=== PATIENT | male | born 1955 | race Caucasian/White ===

== ENCOUNTER → 2016-10-19 | Outpatient (CLI) | payer MEDICARE, OTHER ==
[2015-04-21 13:22] VITALS: BP 120/74
[~2016-10-19] MED LIST: ALLO300T PO; BARIATRIC ADVANTAGE PO; BUPR150T11 PO; CALC-102 PO; CHOL10003 PO; CLIN300C3 PO; CYAN3000 SL; DAPA5TAB PO; DIGO250T PO; DILT60TA PO; DOCU100C5 PO; DULO60CA6 PO; ENOX40DI SQ; ESCI10TA PO; EZET10TA3 PO; FLUT1DIS5 IH; GABA-585 PO; HYDR-2762 PO; LINA1TAB PO; LISI-338 PO; LORA0.5T PO; METO100T11 PO; MONT10TA6 PO; MULT-35 PO; OMEP20TA PO; PROAIR HFA8.5 GM IH; SENN8.6T67 PO; TAMS0.4C2 PO; TEMA30CA PO; VENL75TA PO; WARF5TAB7 PO
== END | disposition home or self-care (01) ==
LOC: PMGWOUND 09:01
PROVIDERS: ATTEND Preventive Medicine Undersea and Hyperbaric Medicine
DX: L03.116 Cellulitis of left lower limb (principal); L03.115 Cellulitis of right lower limb; E11.9 Type 2 diabetes mellitus without complications; I48.92 Unspecified atrial flutter; M19.90 Unspecified osteoarthritis, unspecified site; J45.909 Unspecified asthma, uncomplicated; Z87.891 Personal history of nicotine dependence
CPT/HCPCS: 29581

== ENCOUNTER → 2016-10-22 | Outpatient (CLI) | payer MEDICARE, OTHER ==
[2015-04-21 13:22] VITALS: BP 120/74
== END | disposition home or self-care (01) ==
LOC: PMGWOUND 14:02
PROVIDERS: ATTEND Emergency Medicine Undersea and Hyperbaric Medicine
DX: L03.116 Cellulitis of left lower limb (principal); L03.115 Cellulitis of right lower limb; E11.9 Type 2 diabetes mellitus without complications; I48.92 Unspecified atrial flutter; M19.90 Unspecified osteoarthritis, unspecified site; J45.909 Unspecified asthma, uncomplicated; Z87.891 Personal history of nicotine dependence
CPT/HCPCS: 29581

== ENCOUNTER → 2016-10-25 | Outpatient (CLI) | payer MEDICARE, OTHER ==
[2015-04-21 13:22] VITALS: BP 120/74
== END | disposition home or self-care (01) ==
LOC: PMGWOUND 12:25
PROVIDERS: ATTEND Emergency Medicine Undersea and Hyperbaric Medicine
DX: I87.333 Chronic venous hypertension (idiopathic) with ulcer and inflammation of bilateral lower extremity (principal); L97.211 Non-pressure chronic ulcer of right calf limited to breakdown of skin; L97.221 Non-pressure chronic ulcer of left calf limited to breakdown of skin; E11.622 Type 2 diabetes mellitus with other skin ulcer; I48.92 Unspecified atrial flutter; M19.90 Unspecified osteoarthritis, unspecified site; J45.909 Unspecified asthma, uncomplicated; Z87.891 Personal history of nicotine dependence
CPT/HCPCS: 29581

== ENCOUNTER → 2016-10-29 | Outpatient (CLI) | payer MEDICARE, OTHER ==
[2015-04-21 13:22] VITALS: BP 120/74
== END | disposition home or self-care (01) ==
LOC: PMGWOUND 12:20
PROVIDERS: ATTEND Emergency Medicine Undersea and Hyperbaric Medicine
DX: I87.311 Chronic venous hypertension (idiopathic) with ulcer of right lower extremity (principal); I87.322 Chronic venous hypertension (idiopathic) with inflammation of left lower extremity; E11.622 Type 2 diabetes mellitus with other skin ulcer; L97.211 Non-pressure chronic ulcer of right calf limited to breakdown of skin; L97.221 Non-pressure chronic ulcer of left calf limited to breakdown of skin; L03.116 Cellulitis of left lower limb; I48.91 Unspecified atrial fibrillation; M19.90 Unspecified osteoarthritis, unspecified site; J45.909 Unspecified asthma, uncomplicated; Z87.891 Personal history of nicotine dependence
CPT/HCPCS: 29581

== ENCOUNTER → 2016-11-02 | Outpatient (CLI) | payer MEDICARE, OTHER ==
[2015-04-21 13:22] VITALS: BP 120/74
== END | disposition home or self-care (01) ==
LOC: PMGWOUND 10:50
PROVIDERS: ATTEND Emergency Medicine Undersea and Hyperbaric Medicine
DX: I87.333 Chronic venous hypertension (idiopathic) with ulcer and inflammation of bilateral lower extremity (principal); E11.622 Type 2 diabetes mellitus with other skin ulcer; L97.211 Non-pressure chronic ulcer of right calf limited to breakdown of skin; L97.221 Non-pressure chronic ulcer of left calf limited to breakdown of skin; I48.92 Unspecified atrial flutter; J45.909 Unspecified asthma, uncomplicated; M19.90 Unspecified osteoarthritis, unspecified site; Z87.891 Personal history of nicotine dependence
CPT/HCPCS: 99213

== ENCOUNTER → 2016-11-05 | Outpatient (CLI) | payer MEDICARE, OTHER ==
[2015-04-21 13:22] VITALS: BP 120/74
== END | disposition home or self-care (01) ==
LOC: PMGWOUND 08:51
PROVIDERS: ATTEND Emergency Medicine Undersea and Hyperbaric Medicine
DX: I87.333 Chronic venous hypertension (idiopathic) with ulcer and inflammation of bilateral lower extremity (principal); L97.211 Non-pressure chronic ulcer of right calf limited to breakdown of skin; L97.221 Non-pressure chronic ulcer of left calf limited to breakdown of skin; L30.8 Other specified dermatitis; E11.622 Type 2 diabetes mellitus with other skin ulcer; I48.92 Unspecified atrial flutter; M19.90 Unspecified osteoarthritis, unspecified site; J45.909 Unspecified asthma, uncomplicated; Z87.891 Personal history of nicotine dependence
CPT/HCPCS: 99215

== ENCOUNTER → 2016-11-12 | Outpatient (CLI) | payer MEDICARE, OTHER ==
[2015-04-21 13:22] VITALS: BP 120/74
== END | disposition home or self-care (01) ==
LOC: PMGWOUND 11:33
PROVIDERS: ATTEND Emergency Medicine Undersea and Hyperbaric Medicine
DX: I87.311 Chronic venous hypertension (idiopathic) with ulcer of right lower extremity (principal); I87.322 Chronic venous hypertension (idiopathic) with inflammation of left lower extremity; E11.622 Type 2 diabetes mellitus with other skin ulcer; L97.211 Non-pressure chronic ulcer of right calf limited to breakdown of skin; L97.221 Non-pressure chronic ulcer of left calf limited to breakdown of skin; L30.8 Other specified dermatitis; I48.91 Unspecified atrial fibrillation; M19.90 Unspecified osteoarthritis, unspecified site; J45.909 Unspecified asthma, uncomplicated; Z87.891 Personal history of nicotine dependence
CPT/HCPCS: 99214

== ENCOUNTER → 2021-03-16 | Outpatient (CLI) | payer MEDICARE ==
[2018-08-09 15:55] VITALS: BP 102/59
[~2021-03-16] MED LIST changes: +ALBU2.5V8 IH; -DIGO250T PO; +DIGO250T3 PO; +DOCU100C28 PO; -DOCU100C5 PO; -ESCI10TA PO; +ESCITALOPRAM OX10 MG PO; +EZET10TA20 PO; -EZET10TA3 PO; -HYDR-2762 PO; +HYDR-2765 PO; +HYDR-3164 PO; -LISI-338 PO; +LISI-517 PO; +METO-247 PO; -METO100T11 PO; +MONT10TA49 PO; -MONT10TA6 PO; -MULT-35 PO; +MULT-377 PO; -OMEP20TA PO; +OMEP20TA8 PO; -PROAIR HFA8.5 GM IH; +WARF-31 PO; -WARF5TAB7 PO
--- NOTE | 2021-03-17 09:48 | CARD ---
MR#: [id number] Date of Study: 03/16/2021 Ordering Physician: JANNET MEYER, Referring Physician: JANNET MEYER, Tech: Alecia Laurakatherine, [facility] APPROVED REPORT EXAM: Two-dimensional and M-mode echocardiogram with Doppler and color Doppler. Other Information Quality : FairHR: 56bpm INDICATION Atrial Fibrillation RISK FACTORS Hypertension Hyperlipidemia Diabetes Asthma 2D DIMENSIONS Left Atrium(2D)4.0 (1.6-4.0cm)IVSd1.1 (0.7-1.1cm) Aortic Root(2D)3.5 (2.0-3.7cm)LVDd4.4 (3.9-5.9cm) LVOT Diameter2.0 (1.8-2.4cm)PWd1.2 (0.7-1.1cm) LVDs2.8 (2.5-4.0cm)FS (%) 36.0 % SV57.9 mlLVEF(%)65.8 (>50%) Aortic Valve AoV Peak Emmanuel.160.4cm/sAoV VTI30.9cm AO Peak GR.10.3mmHgLVOT Peak Emmanuel.104.9cm/s LVOT VTI 21.54cmAO Mean GR.6mmHg CAROLANN (VMAX)1.25ig8ISP (VTI)2.21cm2 Mitral Valve MV E Magqcizp441.4cm/sMV DECEL OYJU276px MV A Iugfgzxs69.6cm/sMV E Mean Gr.2mmHg MV RKI71tlD/A Ratio3.5 MVA (PHT)4.05cm2 TDI E/Lateral E'12.9E/Medial E'16.1 Pulmonary Valve PV Peak Jqlqbmrp96.8cm/sPV Peak Grad.4mmHg Tricuspid Valve TR P. Krwrzjka197pu/sTR Peak Gr.27mmHg LEFT VENTRICLE The left ventricle is normal size. There is mild concentric left ventricular hypertrophy. The left ve ntricular systolic function is normal. The Ejection Fraction is 55%. There is normal LV segmental wal l motion. RIGHT VENTRICLE The right ventricle is mildly dilated. There is normal right ventricular wall thickness. The right ve ntricular systolic function is normal. ATRIA The left atrium is mildly to moderately dilated. The right atrium is mildly dilated. The interatrial septum is intact with no evidence for an atrial septal defect or patent foramen ovale as noted on 2-D or Doppler imaging. AORTIC VALVE The aortic valve is calcified but opens well. Doppler and Color Flow revealed trace aortic regurgitat ion. There is no significant aortic valvular stenosis. Calculated aortic valve area is 2.30 cm2 with maximum pressure gradient of 11 mmHg and mean pressure gradient of 6 mmHg. MITRAL VALVE The mitral valve is normal in structure and function. There is no evidence of mitral valve prolapse. There is no mitral valve stenosis. Doppler and Color-flow revealed trace mitral regurgitation. TRICUSPID VALVE The tricuspid valve is normal in structure and function. Doppler and Color Flow revealed trace tricus pid regurgitation with an estimated PAP of 42 mmHg. There is mild-moderate pulmonary hypertension. Th ere is no tricuspid valve stenosis. PULMONIC VALVE The pulmonic valve is not well visualized. Doppler and Color Flow revealed trace pulmonic valvular re gurgitation. GREAT VESSELS The aortic root is normal in size. The IVC is dilated and collapses <50% with inspiration. PERICARDIAL EFFUSION There is no evidence of significant pericardial effusion. Critical Notification Critical Value: No <Conclusion> The left ventricular systolic function is normal. The Ejection Fraction is 55%. There is normal LV segmental wall motion. Trace mitral regurgitation. Trace tricuspid regurgitation with an estimated PAP of 42 mmHg. There is no evidence of significant pericardial effusion. Signed by : Foreign Madden, Electronically Approved : 03/17/2021 09:47:48
== END ==
LOC: ECHO 14:13
PROVIDERS: ATTEND Internal Medicine Cardiovascular Disease
DX: I35.1 Nonrheumatic aortic (valve) insufficiency (principal); I48.21 Permanent atrial fibrillation; I10 Essential (primary) hypertension
CPT/HCPCS: 93306

== ENCOUNTER → 2021-11-17 | Day surgery (SDC) | payer MEDICARE ==
[~2021-11-17] VITALS: Ht 165.1 cm; Wt 99.0 kg
[~2021-11-17] MED LIST changes: -DULO60CA6 PO; +DULO60CA7 PO; +IV RINGERS,LACTATED 1000ML 1,000 ML IV SCH; +LEVO50TA5 PO; +LIDOCAINE 2% PF 5 ML VIAL. ONE; -LISI-517 PO; +LISI5TAB15 PO; -OMEP20TA8 PO; +OMEP20TA91 PO; +PROPOFOL 10 MG/ML (20ML) VIAL. IV ONE
[2021-11-17 07:34] VITALS: BP 136/67
--- NOTE | 2021-11-17 08:47 | PDOC2 ---
CONSULT Date of Consult Date of Consult DATE: 11/17/21 TIME: 08:41 Reason for Consult Reason for Consult: Colorectal cancer screening with diarrhea History of Present Illness Reason for Visit: 56 year old Male is seen with above. He has long standing diarrhea without bleed ing. He does take metformin on a daily basis. Weight and appetite are stable. No family history of colon cancer is elicited. Prior colonoscopy over a decade ago may have revealed polyps. With the continued issues, he requests further evaluation. Past Medical History Cardiovascular: AFIB, HTN Endocrine: Diabetes Past Surgical History Past Surgical History: Hernia Repair, Other (sholder replacement, knee cartilage ) Family History Family History: No Significant, Diabetes, Hypertension Social History Quit ALCOHOL: none Drugs: None Lives: with Family Current Medications Current Medications Current Medications Ringer's Solution 1,000 ml @ 100 mls/hr Q10H IV Last administered on 11/17/21at 07:50; Start 11/17/21 at 07:45; Stop 11/18/21 at 07:44 Active Scripts Active [place] 5-325 Tablet (Acetaminophen/Hydrocodone Bitart) 1 Each Tablet 1 Tab PO PRN Q6HRS PRN Reported Levothyroxine Sodium 50 Mcg Tablet 1 Tab PO DAILY Hydrocodone-Apap 7.5-325 (Hydrocodone Bit/Acetaminophen) 1 Each Tablet 1-2 Tab PO PRN Q4HRS PRN LAST DOSE GIVEN: DATE:04-21-15 TIME:7:30 a.m. NEXT DOSE DUE: DATE:04-21-15 TIME: Anytime as directed if needed for pain as Tamsulosin Hcl 0.4 Mg Cap.er.24h 0.4 Mg PO HS LAST DOSE GIVEN: DATE:04-20-15 TIME:9:00 p.m. NEXT DOSE DUE: DATE:04-21-15 TIME:9:00 p.m. Warfarin Sodium 5 Mg Tablet 5 Mg PO DAILY TAKE 5 MG, 5MG, 2.5MG, REPEAT Bupropion Hcl Sr (Bupropion Hcl) 150 Mg Tablet.er 150 Mg PO DAILY LAST DOSE GIVEN: DATE:04-21-15 TIME:9:00 a.m. NEXT DOSE DUE: DATE:04-22-15 TIME:9:00 a.m. Allopurinol 300 Mg Tablet 1 Tab PO DAILY LAST DOSE GIVEN: DATE:04-21-15 TIME:9:00 a.m. NEXT DOSE DUE: DATE:04-22-15 TIME:9:00 a.m. Vitamin D3 (Cholecalciferol (Vitamin D3)) 1,000 Unit Tablet 1,000 Unit PO LAST DOSE GIVEN: DATE:04-22-15 TIME:9:00 a.m. NEXT DOSE DUE: DATE:04-23-15 TIME:9:00 a.m. [Bariatric Advantage] 1 PO DAILY Not taken while in hosp. May resume at home as directed Advair 500-50 Diskus (Fluticasone/Salmeterol) 1 Each Disk.w.dev 1 Inh IH BID LAST DOSE GIVEN: DATE:04-22-15 TIME:9:00 a.m. NEXT DOSE DUE: DATE:04-22-15 TIME:9:00 p.m. Farxiga (Dapagliflozin Propanediol) 5 Mg Tablet 2 Mg PO DAILY Not given for hosp supply may resume at home as directed Jentadueto 2.5 Mg-500 Mg Tab (Linagliptin/Metformin Hcl) 1 Each Tablet 1 Each PO BID LAST DOSE GIVEN: DATE:04-21-15 TIME:9:00 a.m. NEXT DOSE DUE: DATE:04-22-15 TIME:9:00 a.m. Proair Hfa Inhaler (Albuterol Sulfate) 8.5 Gm Hfa.aer.ad 2 Puff IH QIDPRN PRN Not taken while in hosp. May resume at home as needed for shortness of air. B-12 (Cyanocobalamin (Vitamin B-12)) 3,000 Mcg Tab.subl Mcg SL WEEKLY No taken while in hosp. may resume at home as directed Lisinopril 5 Mg Tablet 1 Tab PO DAILY LAST DOSE GIVEN: DATE:04-21-15 TIME:9:00 a.m. NEXT DOSE DUE: DATE:04-22-15 TIME:9:00 a.m. Omeprazole 20 Mg Tablet.dr 1 Tab PO DAILY LAST DOSE GIVEN: DATE:04-21-15 TIME:7:30 a.m. NEXT DOSE DUE: DATE:04-22-15 TIME:7:30 a.m. Singulair Tablet (Montelukast Sodium) 10 Mg Tablet 10 Mg PO HS LAST DOSE GIVEN: DATE:04-20-15 TIME:9:00 p.m. NEXT DOSE DUE: DATE:04-21-15 TIME:9:00 p.m. Docusate Sodium 100 Mg Capsule Cap PO QODAY LAST DOSE GIVEN: DATE:04-22-15 TIME:9:00 a.m. NEXT DOSE DUE: DATE:04-23-15 TIME:9:00 a.m. Digoxin 250 Mcg Tablet 250 Mcg PO DAILY LAST DOSE GIVEN: DATE:04-21-15 TIME:9:00 a.m. NEXT DOSE DUE: DATE:04-22-15 TIME:9:00 a.m. Gabapentin (Gabapentin) 100 Mg Capsule 1 Cap PO DAILY LAST DOSE GIVEN: DATE:04-21-15 TIME:9:00 a.m. NEXT DOSE DUE: DATE:04-22-15 TIME:9:00 a.m. Cymbalta (Duloxetine Hcl) 60 Mg Capsule.dr 1 Cap PO DAILY LAST DOSE GIVEN: DATE:04-22-15 TIME:9:00 a.m. NEXT DOSE DUE: DATE:04-23-15 TIME:9:00 a.m. Zetia (Ezetimibe) 10 Mg Tablet 10 Mg PO HS LAST DOSE GIVEN: DATE:04-21-15 TIME:9:00 p.m. NEXT DOSE DUE: DATE:04-22-15 TIME:9:00 p.m. Diltiazem Hcl Tablet (Diltiazem Hcl) 60 Mg Tablet 60 Mg PO BID LAST DOSE GIVEN: DATE:04-22-15 TIME: NEXT DOSE DUE: DATE:04-23-15 TIME: Allergies Allergies: Coded Allergies: egg (Verified Allergy, Intermediate, Rash, 11/17/21) NSAIDS (Non-Steroidal Anti-Inflamma (Verified Adverse Reaction, Severe, GASTRITIS, 11/17/21) ROS Musculoskeletal: Yes Joint Pain Physical Exam General: Alert, Oriented X3 Lungs: Clear to auscultation Heart: Normal S1, Normal S2 Abdomen: Normal bowel sounds, Soft, No tenderness Vitals VITALS Vital Signs Date Time Temp Pulse Resp B/P (MAP) Pulse Ox O2 Delivery O2 Flow Rate FiO2 11/17/21 07:34 98.1 60 20 100 98.1 Assessment/Plan Assessment/Plan CRC screening-with diarrhea, Differential includes: drug side effect, collagenous colitis, IBS, IBD, colon cancer, and/or diverticualr disease. Colonoscopy to further assess. R/B discussed with patient who is willing to proceed. AMMY STEVEN MD November 17, 2021 08:47
[2021-11-17 09:29] VITALS: BP 113/60
--- NOTE | 2021-11-20 16:07 | PATHOLOGY ---
[facility] Accession Number: [id number] . 01 Material submitted: . PART A: colon - TRANSVERSE COLON POLYP PART B: colon - RANDOM COLON BX'S . 01 Clinical history: . CRC SCREEN . 02 Diagnosis: A. Colon biopsies, transverse colon polyp: - Tubular adenoma. . B. Colonic mucosa, random colon biopsies: - No diagnostic abnormalities. . (JPM:[place]; 11/20/2021) MBR 11/20/2021 1457 Local . 02 Comment: Sections of the transverse colon biopsy reveal a tubular adenoma showing no high-grade dysplasia or evidence of malignancy. . Sections of the random colon biopsy reveal multiple segments of colonic mucosa containing a single mucosal-associated lymphoid aggregate. There is no evidence of a chronic destructive colitis, lymphocytic colitis or collagenous colitis. . (JPM:[place]; 11/20/2021) . 02 Electronically signed: . Ronen Garcia MD, Pathologist NPI- [id number] . 01 Gross description: . A. Received in formalin labeled "Jess, Jaspal, transverse colon polyp" are multiple fragments of carney-brown soft tissue measuring in aggregate 0.9 x 0.7 x 0.4 cm. The specimen is submitted entirely in A1. . B. Received in formalin labeled "Jess, Jaspal, random colon biopsies" are multiple fragments of carney-brown soft tissue measuring in aggregate 1.1 x 0.4 x 0.2 cm. The specimen is submitted entirely in B1. ([facility]; 11/19/2021) GZA/GZA 11/20/2021 1455 Local . 02 Pathologist provided ICD-10: D12.3 . 02 CPT . 653053, [id number] Specimen Comment: A courtesy copy of this report has been sent to [phone], [phone] Specimen Comment: [id number] Specimen Comment: Report sent to / DR DELEON Performed at: [address] [facility], [place] [id number] MD Tee Franco MD Phone: [phone] Performed at: [facility] [address] [place], [place] [id number] MD Ronen Garcia MD Phone: [phone]
== END | disposition home or self-care (01) ==
LOC: ENDOS 07:14
PROVIDERS: ATTEND Internal Medicine Gastroenterology
DX: R19.7 Diarrhea, unspecified (principal); D12.3 Benign neoplasm of transverse colon; K63.89 Other specified diseases of intestine; K64.8 Other hemorrhoids; I48.91 Unspecified atrial fibrillation; I10 Essential (primary) hypertension; E11.9 Type 2 diabetes mellitus without complications; E78.00 Pure hypercholesterolemia, unspecified; M19.90 Unspecified osteoarthritis, unspecified site; E66.9 Obesity, unspecified; F32.9 Major depressive disorder, single episode, unspecified; Z79.899 Other long term (current) drug therapy; Z98.890 Other specified postprocedural states; Z87.891 Personal history of nicotine dependence; Z88.8 Allergy status to other drugs, medicaments and biological substances; Z82.49 Family history of ischemic heart disease and other diseases of the circulatory system
CPT/HCPCS: 45380; 45385; 88305; J2704; 45384